=== PATIENT | male | born 1990 | race Caucasian/White ===

== ENCOUNTER 2020-05-28 03:30 | Emergency (ER) | payer BC, SELFPAY ==
[2020-05-28 04:14] LABS: Absolute Lymphocytes (CBC) 3.3 K/uL (0.7-4.9); Basophils % 0.8 % (0-1.3); Hematocrit 42.2 % (39.6-49.0); Lymphocytes % 45.3 % (15.3-44.8); MPV 7.9 fL (7.6-11.3); RBC Red Blood Cell Count 4.69 M/uL (4.33-5.43)
[2020-05-28 04:16] LABS: Protime INR 0.96
[2020-05-28 04:54] LABS: Barbiturates NEGATIVE (NEGATIVE); Benzodiazepines NEGATIVE (NEGATIVE); Cocaine POSITIVE (NEGATIVE); METHAMPHETAM NEGATIVE (NEGATIVE); Methadone NEGATIVE (NEGATIVE); Opiates NEGATIVE (NEGATIVE); Phencyclidine NEGATIVE (NEGATIVE); THC Cannibis NEGATIVE (NEGATIVE)
[2020-05-28 04:54] LABS: ALT/SGPT 51 U/L (12-78); AST/SGOT 19 U/L (15-37); Albumin 4.3 g/dL (3.4-5.0); Alkaline Phosphatase 42 U/L (45-117); BUN Blood Urea Nitrogen 9 mg/dL (7-18); Bicarbonate 25 mmol/L (21-32); Bilirubin Direct 0.1 mg/dL (0-0.2); Bilirubin Total 0.4 mg/dL (0.2-1.0); Glucose Level 108 mg/dL (74-106); Potassium 3.4 mmol/L (3.5-5.1); Protein, Total 8.5 g/dL (6.4-8.2); Sodium Level 139 mmol/L (136-145)
[2020-05-28 05:10] LABS: Urine Blood NEGATIVE (NEG); Urine Glucose NEGATIVE (NEG); Urine Protein NEGATIVE (NEG); Urine pH 8.5 (5.0-7.0)
--- NOTE | 2020-05-28 05:50 | EKG ---
Test Date: 2020-05-28 Test Time: 03:59:52 [employer] Engineer: MG MEASUREMENT RESULTS: Intervals: Rate: 116 TN: 142 QRSD: 84 QT: 328 QTc: 455 [place]: P: 32 TN: 142 QRS: 51 T: 27 INTERPRETIVE STATEMENTS: Sinus tachycardia Otherwise normal ECG No previous ECG available for comparison Electronically Signed On 05-28-20 05:49:58 CDT by Jeyson Lamar
--- NOTE | 2020-05-28 07:01 | ER ---
Nurse's Notes [facility] Name: Kishan Salguero Age: 30 yrs Sex: Male : 1990 Arrival Date: 05/28/2020 Time: 03:32 Bed 8 Private MD: Diagnosis: Depression;Cocaine Abuse Presentation: 05/28 03:51 Chief complaint: Patient states: he talked to the suicide hotline for about an hour who bb recommended he come to the ED for further evaluation pt states he feels suicidal he is fighting with his , having financial problems and is feeling trapped he has felt this way in the past but has not received treatment at that time. Coronavirus screen: At this time, the client does not indicate any symptoms associated with coronavirus-19. Ebola Screen: No symptoms or risks identified at this time. Initial Sepsis Screen: Does the patient meet any 2 criteria? No. Patient's initial sepsis screen is negative. Does the patient have a suspected source of infection? No. Patient's initial sepsis screen is negative. Risk Assessment: Do you want to hurt yourself or someone else? Patient reports no desire to harm self or others. Onset of symptoms was May 28, 2020. 03:51 Method Of Arrival: Ambulatory bb 03:51 Acuity: TAYLOR 2 bb 03:56 Note pt revealed to nurse that he did cocaine tonight. bb Historical: - Allergies: 03:55 PENICILLINS; bb 03:55 Sulfa (Sulfonamide Antibiotics); bb 03:55 Tetanus Vaccines \T\ Toxoid; bb - Home Meds: 03:55 None [Active]; bb - PMHx: 03:55 Hypertension; bb - PSHx: 03:55 addenoids; testicle; dental surgery; bb - Immunization history:: Adult Immunizations up to date. - Social history:: Smoking status: Patient reports the use of cigarette tobacco products, smokes one-half pack cigarettes per day, Patient uses alcohol, occasionally. Patient/guardian denies using street drugs. Screenin:04 Abuse screen: Denies threats or abuse. Denies injuries from another. Nutritional mg2 screening: No deficits noted. Tuberculosis screening: No symptoms or risk factors identified. Fall Risk IV access (20 points). Assessment: 04:03 General: Appears in no apparent distress. comfortable, Behavior is calm, cooperative. mg2 Pain: Denies pain. Neuro: Level of Consciousness is awake, alert, obeys commands, Oriented to person, place, time, situation. Cardiovascular: Capillary refill < 3 seconds Patient's skin is warm and dry. Cardiovascular: Rhythm is sinus tachycardia. Respiratory: Airway is patent Respiratory effort is even, unlabored, Respiratory pattern is regular, symmetrical. GI: No signs and/or symptoms were reported involving the gastrointestinal system. : No signs and/or symptoms were reported regarding the genitourinary system. EENT: No signs and/or symptoms were reported regarding the EENT system. Derm: Skin is intact, is healthy with good turgor, Skin is pink, warm \T\ dry. normal. Musculoskeletal: Circulation, motion, and sensation intact. Capillary refill < 3 seconds. 04:38 Reassessment: patient said he doesn't have suicidal thoughts now. just a little nervous.mg2 05:30 Reassessment: Patient appears in no apparent distress at this time. patient sleeping. mg2 06:09 Reassessment: patient speaking to [facility] now over audio call. mg2 07:12 Reassessment: security will return the patient's belonging. patient for dc. dc mg2 instruction given., just waiting for the call back from [facility] about the appointment date. 08:12 Reassessment: Called and spoke with Saundra, was calling to inquire about sv the call back for to get the pt an appt. She stated that she would page one of the crisis people to have them call us back. Psych: 03:56 Subjective: Patient's mood is elevated. Objective: Patient is cooperative, Speech is bb normal, Affect is inappropriate. Interventions: Removed personal items and placed in bag. Patient placed in hospital gown. Searched person for dangerous items. Suicide Risk Assessment: Sad Person Scale: Sex of patient: Male: Score 1 point. Age of patient: Score 1 point if patient 15-34. Depression: Previous Attempt: Substance Abuse: Score 1 point if patient abuses alcohol or drugs. Rational Thinking: Score 0 point if patient has rational thinking. Organized Plan: Score 1 point if patient had a plan in place. TOTAL POINTS: If total points are 3-4, proposed clinical action is close follow-up/consider hospitalization. Safety Checks: Personal items have been removed. Patient uses cocaine, Last use was last night. Vital Signs: 03:51 BP 176 / 110; Pulse 130; Resp 24 S; Temp 98.6(O); Pulse Ox 100% on R/A; Weight 87.09 kg bb (R); Height 5 ft. 9 in. (175.26 cm) (R); Pain 0/10; 04:37 BP 147 / 100; Pulse 93; Resp 18; Pulse Ox 100% on R/A; mg2 07:13 BP 140 / 95; Pulse 90; Resp 18; Temp 98; Pulse Ox 100% on R/A; mg2 03:51 Body Mass Index 28.35 (87.09 kg, 175.26 cm) bb ED Course: 03:32 Patient arrived in ED. cl3 03:42 Sander Danielle, FERN is Primary Nurse. mg2 03:43 Rishabh Harris MD is Attending Physician. 7 03:54 Triage completed. bb 03:55 Arm band placed on Patient placed in an exam room, on a stretcher, on pulse oximetry. bb 04:04 Patient has correct armband on for positive identification. Placed in gown. Valuables mg2 Locked in safe. Door closed. Warm blanket given. 04:04 Sitter at bedside. mg2 04:04 No provider procedures requiring assistance completed. Inserted saline lock: 20 gauge mg2 in left antecubital area, using aseptic technique. Blood collected. 05:33 Contacted [facility] and spoke with Cookie regarding the patient being screened. Cookie tt3 stated she would pass the information along to the screener. 05:54 Ministerio with [employer] called to screen the patient. He requested the chart be faxed to tt3 . He will follow up after shift change and stated he can fax recommendations over when he gets to the office. 06:59 Stan Coles MD is Referral Physician. mh7 07:12 IV discontinued, intact, bleeding controlled, No redness/swelling at site. Pressure mg2 dressing applied. Administered Medications: No medications were administered Outcome: 07:00 Discharge ordered by . mh7 07:13 Discharged to home ambulatory. mg2 07:13 Condition: stable 07:13 Discharge instructions given to patient, Instructed on discharge instructions, follow up and referral plans. Demonstrated understanding of instructions, follow-up care. 08:47 Patient left the ED. sv Signatures: Taan Rodrigez RN RN sv Cherelle Reed, RN RN bb Sander Danielle, RN RN mg2 Dante Jara cl3 Rishabh Harris MD MD mh7 Talita, Kishan tt3
--- NOTE | 2020-05-28 07:01 | EDPHYS ---
Physician Documentation [facility] Name: Kishan Salguero Age: 30 yrs Sex: Male : 1990 Arrival Date: 05/28/2020 Time: 03:32 Bed 8 Private MD: ED Physician Risahbh Harris HPI: 05/28 04:17 This 30 yrs old Male presents to ER via Ambulatory with complaints of Mental mh7 Health Issues. 04:17 The patient presents to the emergency department with depression, over money, over a mh7 relationship, a history of substance abuse, Type: beer, cocaine, suicide ideation, and the patient has a plan, Drive car into [place]. Onset: The symptoms/episode began/occurred 7 month(s) ago, and became worse 1 week(s) ago. Past psychiatric history: Prior diagnosis: no previous psychiatric diagnosis known, Psychiatric medications include: none, Primary psychiatric physician: the patient does not have a primary psychiatric physician, the patient has not had a prior suicide gesture, the patient does not have a previous inpatient psychiatric history, the patient's last psychiatric treatment was none. Associated signs and symptoms: Pertinent positives; depression, substance abuse, suicide ideation, Pertinent negatives: abdominal pain, anxiety, chest pain, chills, delusions, fever, hallucinations, headache, homicidal ideation, nausea, night sweats, palpitations, paranoia, shortness of breath, tremor, vomiting. Severity of symptoms: At their worst the symptoms were moderate yesterday, in the emergency department the symptoms are unchanged. Historical: - Allergies: 03:55 PENICILLINS; bb 03:55 Sulfa (Sulfonamide Antibiotics); bb 03:55 Tetanus Vaccines \T\ Toxoid; bb - Home Meds: 03:55 None [Active]; bb - PMHx: 03:55 Hypertension; bb - PSHx: 03:55 addenoids; testicle; dental surgery; bb - Immunization history:: Adult Immunizations up to date. - Social history:: Smoking status: Patient reports the use of cigarette tobacco products, smokes one-half pack cigarettes per day, Patient uses alcohol, occasionally. Patient/guardian denies using street drugs. ROS: 04:17 Constitutional: Negative for fever, chills, and weight loss, Eyes: Negative for injury, mh7 pain, redness, and discharge, ENT: Negative for injury, pain, and discharge, Neck: Negative for injury, pain, and swelling, Cardiovascular: Negative for chest pain, palpitations, and edema, Respiratory: Negative for shortness of breath, cough, wheezing, and pleuritic chest pain, Abdomen/GI: Negative for abdominal pain, nausea, vomiting, diarrhea, and constipation, Back: Negative for injury and pain, : Negative for injury, bleeding, discharge, and swelling, MS/Extremity: Negative for injury and deformity, Skin: Negative for injury, rash, and discoloration, Neuro: Negative for headache, weakness, numbness, tingling, and seizure, Allergy/Immunology: Negative for hives, rash, and allergies, Endocrine: Negative for neck swelling, polydipsia, polyuria, polyphagia, and marked weight changes, Hematologic/Lymphatic: Negative for swollen nodes, abnormal bleeding, and unusual bruising. Exam: 04:17 Constitutional: This is a well developed, well nourished patient who is awake, alert, mh7 and in no acute distress. Head/Face: Normocephalic, atraumatic. Eyes: Pupils equal round and reactive to light, extra-ocular motions intact. Lids and lashes normal. Conjunctiva and sclera are non-icteric and not injected. Cornea within normal limits. Periorbital areas with no swelling, redness, or edema. Neck: Trachea midline, no thyromegaly or masses palpated, and no cervical lymphadenopathy. Supple, full range of motion without nuchal rigidity, or vertebral point tenderness. No Meningismus. Chest/axilla: Normal chest wall appearance and motion. Nontender with no deformity. No lesions are appreciated. 04:17 Respiratory: Lungs have equal breath sounds bilaterally, clear to auscultation and percussion. No rales, rhonchi or wheezes noted. No increased work of breathing, no retractions or nasal flaring. Abdomen/GI: Soft, non-tender, with normal bowel sounds. No distension or tympany. No guarding or rebound. No evidence of tenderness throughout. Back: No spinal tenderness. No costovertebral tenderness. Full range of motion. Skin: Warm, dry with normal turgor. Normal color with no rashes, no lesions, and no evidence of cellulitis. MS/ Extremity: Pulses equal, no cyanosis. Neurovascular intact. Full, normal range of motion. Neuro: Awake and alert, GCS 15, oriented to person, place, time, and situation. Cranial nerves II-XII grossly intact. Motor strength 5/5 in all extremities. Sensory grossly intact. Cerebellar exam normal. Normal gait. 04:17 Constitutional: The patient appears 04:17 Cardiovascular: Rate: tachycardic, Rhythm: regular, Pulses: no pulse deficits are appreciated, Heart sounds: normal, normal S1and S2, Edema: is not appreciated, JVD: is not appreciated. 04:17 Psych: Behavior/mood is cooperative, depressed, Affect is calm, Oriented to person, place, time, Patient having thoughts of suicide. Plan for suicide is Drive car into [place] Judgement / Insight is impaired. Memory is normal. Delusions/hallucinations are not present. 04:43 ECG was reviewed by the Attending Physician. [facility] Vital Signs: 03:51 BP 176 / 110; Pulse 130; Resp 24 S; Temp 98.6(O); Pulse Ox 100% on R/A; Weight 87.09 kg bb (R); Height 5 ft. 9 in. (175.26 cm) (R); Pain 0/10; 04:37 BP 147 / 100; Pulse 93; Resp 18; Pulse Ox 100% on R/A; mg2 07:13 BP 140 / 95; Pulse 90; Resp 18; Temp 98; Pulse Ox 100% on R/A; mg2 03:51 Body Mass Index 28.35 (87.09 kg, 175.26 cm) bb MDM: 04:01 Patient medically screened. [facility] 06:46 Differential diagnosis: depression, Substance Abuse, Alcohol Intoxication, Suicidal [facility] Ideation. Data reviewed: vital signs, nurses notes, lab test result(s), CBC, drug level(s), acetaminophen, alcohol, salicylate, electrolytes, urinalysis, urine drug screen, EKG. Data interpreted: Pulse oximetry: on room air is 100 %. Interpretation: normal. Counseling: I had a detailed discussion with the patient and/or guardian regarding: the historical points, exam findings, and any diagnostic results supporting the discharge/admit diagnosis, the presence of at least one elevated blood pressure reading (>120/80) during this emergency department visit, lab results. Response to treatment: the patient's symptoms have markedly improved after treatment. ED course: [facility]iat[facility] evaluated patient and recommended outpatient treatment. He currently is not suicidal or homicidal. He denies any auditory or visual hallucinations. They will arrange for psychiatry appointment to occur today.. 05/28 03:42 Order name: Acetaminophen mg2 05/28 03:42 Order name: Basic Metabolic Panel [facility] [place] 05/28 03:42 Order name: CBC with Diff; Complete Time: 04:39 mg2 05/28 03:42 Order name: ETOH Level; Complete Time: 04:48 mg2 05/28 03:42 Order name: Hepatic Function; Complete Time: 05:24 mg2 05/28 03:42 Order name: PT-INR; Complete Time: 04:39 mg2 05/28 03:42 Order name: Ptt, Activated; Complete Time: 04:39 mg2 05/28 03:42 Order name: Salicylate; Complete Time: 04:39 mg2 05/28 03:42 Order name: Urine Drug Screen; Complete Time: 05:24 mg2 05/28 03:42 Order name: EKG; Complete Time: 03:43 mg2 05/28 03:43 Order name: Acetaminophen Level; Complete Time: 05:24 EDMS 05/28 03:43 Order name: Basic Metabolic Panel; Complete Time: 05:24 EDMS 05/28 04:45 Order name: Urine Dipstick--Ancillary (enter results); Complete Time: 05:24 tt3 05/28 07:52 Order name: EKG Electrocardiogram EDIA 05/28 03:42 Order name: EKG - Nurse/Tech; Complete Time: 04:03 mg2 05/28 03:42 Order name: IV Saline Lock; Complete Time: 04:03 mg2 05/28 03:42 Order name: Labs collected and sent; Complete Time: 04:03 [facility] [place] 05/28 03:42 Order name: Urine Dipstick-Ancillary (obtain specimen); Complete Time: 04:26 mg2 EC:43 Rate is 116 beats/min. Rhythm is regular, Sinus tachycardia. QRS [place] is Normal. ID mh7 interval is normal. QRS interval is normal. QT interval is normal. No Q waves. T waves are Normal. No ST changes noted. Clinical impression: Sinus tachycardia. Administered Medications: No medications were administered Disposition: 05/28/20 07:00 Discharged to Home. Impression: Depression, Cocaine Abuse. - Condition is Stable. - Discharge Instructions: Stimulant Use Disorder-Cocaine, Major Depressive Disorder, Enuj-eb-Tmos. - Medication Reconciliation Form, Thank You Letter, Antibiotic Education, Prescription Opioid Use form. - Follow up: Private Physician; When: 1 - 2 days; Reason: Worsening of condition, Recheck today's complaints, Continuance of care, Re-evaluation by your physician. Follow up: Stan Coles MD; When: 1 - 2 days; Reason: Worsening of condition, Recheck today's complaints. - Problem is an ongoing problem. - Symptoms have improved. Signatures: Dispatcher [employer] EDMS Tana Rodrigez RN RN Cherelle Keating RN RN Sander Middleton RN RN mg2 Rishabh Harris MD MD mh7 Corrections: (The following items were deleted from the chart) 08:47 07:00 05/28/2020 07:00 Discharged to Home. Impression: Depression; Cocaine Abuse. sv Condition is Stable. Forms are Medication Reconciliation Form, Thank You Letter, Antibiotic Education, Prescription Opioid Use. Follow up: Private Physician; When: 1 - 2 days; Reason: Worsening of condition, Recheck today's complaints, Continuance of care, Re-evaluation by your physician. Follow up: Stan Coles; When: 1 - 2 days; Reason: Worsening of condition, Recheck today's complaints. Problem is an ongoing problem. Symptoms have improved. mh7
[2020-05-28 08:59] VITALS: O2SAT 100
[2020-05-28 09:02] VITALS: BP 140/95; TEMP 98
== END 2020-05-28 08:47 | disposition home or self-care (01) ==
LOC: ER 03:30
DX: F14.10 Cocaine abuse, uncomplicated (principal); I10 Essential (primary) hypertension; F17.210 Nicotine dependence, cigarettes, uncomplicated; Z88.0 Allergy status to penicillin; Z88.2 Allergy status to sulfonamides; Z88.7 Allergy status to serum and vaccine
CPT/HCPCS: 36415; 80048; 80076; 80307; 80320; 80329; 81003; 85025; 85610; 85730; 93005; 99285